=== PATIENT | female | born 1995 | race Two or more races ===

== ENCOUNTER 2018-10-26 13:08 | Emergency (ER) | payer OTHER ==
[~2018-10-26] VITALS: Ht 154.9 cm; Wt 58.1 kg
[2018-10-26 13:18] VITALS: BP 120/67
== END 2018-10-26 15:20 | disposition home or self-care (01) ==
LOC: ER 13:08
DX: J02.9 Acute pharyngitis, unspecified (principal)
CPT/HCPCS: 71046